=== PATIENT | female | born 1980 | race Caucasian/White ===

== ENCOUNTER 2020-04-19 08:30 | Emergency (ER) | payer SELFPAY ==
--- NOTE | 2020-04-19 10:14 | ER ---
Nurse's Notes [facility] Name: Tess Villatoro Age: 40 yrs Sex: Female : 1980 Arrival Date: 04/19/2020 Time: 08:33 Bed 8 Private MD: Diagnosis: Cellulitis of otaf-yivl-oetskts Presentation: 04/19 09:45 Chief complaint: Right upper eyelid swelling and redness x 2 days. Coronavirus screen: hb At this time, the client does not indicate any symptoms associated with coronavirus-19. Ebola Screen: No symptoms or risks identified at this time. Initial Sepsis Screen: Does the patient meet any 2 criteria? No. Patient's initial sepsis screen is negative. Does the patient have a suspected source of infection? No. Patient's initial sepsis screen is negative. Risk Assessment: Do you want to hurt yourself or someone else? Patient reports no desire to harm self or others. Onset of symptoms was April 17, 2020. 09:45 Method Of Arrival: Ambulatory hb 09:45 Acuity: ALEXANDER 4 hb Triage Assessment: 09:45 General: Appears in no apparent distress. Behavior is calm, cooperative. Pain: Pain hb currently is 3 out of 10 on a pain scale. EENT: Reports redness and swelling noted to right upper eye lid, pt reports pain 3/10. Neuro: Level of Consciousness is awake, alert, obeys commands, Oriented to person, place, time, situation. Cardiovascular: Capillary refill < 3 seconds Patient's skin is warm and dry. Respiratory: Respiratory effort is even, unlabored, Respiratory pattern is regular, symmetrical. GI: No signs and/or symptoms were reported involving the gastrointestinal system. : Derm: Skin is pink, warm \T\ dry. Musculoskeletal: No signs and/or symptoms reported regarding the musculoskeletal system. 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 - Social history:: Smoking status: Patient denies any tobacco usage or history of. - Family history:: not pertinent. Screenin:48 Abuse screen: Denies threats or abuse. Denies injuries from another. Nutritional hb screening: No deficits noted. Tuberculosis screening: No symptoms or risk factors identified. Fall Risk None identified. Assessment: 09:48 General: see triage assessment . hb Vital Signs: 09:45 BP 122 / 74; Pulse 74; Resp 16; Temp 98.2; Pulse Ox 99% ; Weight 74.84 kg; Height 5 ft. hb 2 in. (157.48 cm); Pain 3/10; 09:45 Body Mass Index 30.18 (74.84 kg, 157.48 cm) hb ED Course: 08:33 Patient arrived in ED. mr 09:38 Lanny Terrell MD is Attending Physician. ma2 09:43 Arm band placed on. hb 09:46 Triage completed. hb 09:48 Patient has correct armband on for positive identification. Bed in low position. Call hb light in reach. Side rails up X 1. 10:11 Kimberley West, LILIANA is Primary Nurse. hb 10:13 Maksim Melgoza MD is Referral Physician. ma2 10:30 No provider procedures requiring assistance completed. Patient did not have IV access hb during this emergency room visit. Administered Medications: 10:30 Drug: Augmentin 875 mg Route: PO; hb 10:38 Follow up: Response: Medication administered at discharge. hb Outcome: 10:14 Discharge ordered by . ma2 10:30 Discharged to home ambulatory. hb 10:30 Condition: stable 10:30 Discharge instructions given to patient, Instructed on discharge instructions, follow up and referral plans. medication usage, Demonstrated understanding of instructions, follow-up care, medications, Prescriptions given X 1. 10:31 Patient left the ED. hb Signatures: Jerrica Haynes mr Kimberley West, RN RN Lanny Terrell MD MD ma2
--- NOTE | 2020-04-19 10:14 | EDPHYS ---
Physician Documentation [facility] Name: Tess Villatoro Age: 40 yrs Sex: Female : 1980 Arrival Date: 04/19/2020 Time: 08:33 Bed 8 Private MD: ED Physician Lanny Terrell HPI: 04/19 10:10 This 40 yrs old Female presents to ER via Ambulatory with complaints of Eye ma2 Swelling, Vision Problem. 10:10 This 40 yrs old Female presents to ER via Ambulatory with complaints of Eye ma2 Swelling, Vision Problem. 10:10 This 40 yrs old Female presents to ER via Ambulatory with complaints of ma2 Eyelid redness and Swelling. 10:10 Onset: The symptoms/episode began/occurred gradually, 3 day(s) ago. Associated signs ma2 and symptoms: Pertinent negatives: dizziness, fever, headache. Severity of symptoms: At their worst the symptoms were moderate in the emergency department the symptoms are unchanged. The patient has not experienced similar symptoms in the past. 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 - Social history:: Smoking status: Patient denies any tobacco usage or history of. - Family history:: not pertinent. ROS: 10:10 Constitutional: Negative for fever, chills, and weight loss. ma2 10:10 All other systems are negative. Exam: 10:10 Visual Acuity: Visual acuity is within normal limits. ma2 10:10 Constitutional: This is a well developed, well nourished patient who is awake, alert, and in no acute distress. Head/Face: Normocephalic, atraumatic. Eyes: Pupils equal round and reactive to light, extra-ocular motions intact. right upper eyelid is red and mildly swollen, the left eyelis is wnl and lashes normal. Conjunctiva and sclera are non-icteric and not injected. Cornea within normal limits. Periorbital areas with no swelling, redness, or edema. ENT: Nares patent. No nasal discharge, no septal abnormalities noted. Tympanic membranes are normal and external auditory canals are clear. Oropharynx with no redness, swelling, or masses, exudates, or evidence of obstruction, uvula midline. Mucous membranes moist. Neck: Trachea midline, no thyromegaly or masses palpated, and no cervical lymphadenopathy. Supple, full range of motion without nuchal rigidity, or vertebral point tenderness. No Meningismus. Chest/axilla: Normal chest wall appearance and motion. Nontender with no deformity. No lesions are appreciated. Cardiovascular: Regular rate and rhythm with a normal S1 and S2. No gallops, murmurs, or rubs. Normal PMI, no JVD. No pulse deficits. Vital Signs: 09:45 BP 122 / 74; Pulse 74; Resp 16; Temp 98.2; Pulse Ox 99% ; Weight 74.84 kg; Height 5 ft. hb 2 in. (157.48 cm); Pain 3/10; 09:45 Body Mass Index 30.18 (74.84 kg, 157.48 cm) hb MDM: 09:38 Patient medically screened. ma2 10:10 Differential diagnosis: Corneal abrasion of Corneal ulcer of Acute iritis of Data ma2 reviewed: vital signs, nurses notes. Counseling: I had a detailed discussion with the patient and/or guardian regarding: the historical points, exam findings, and any diagnostic results supporting the discharge/admit diagnosis, the presence of at least one elevated blood pressure reading (>120/80) during this emergency department visit, the need for outpatient follow up. Response to treatment: the patient's symptoms have markedly improved after treatment. Administered Medications: 10:30 Drug: Augmentin 875 mg Route: PO; hb 10:38 Follow up: Response: Medication administered at discharge. Disposition: 04/19/20 10:14 Discharged to Home. Impression: Cellulitis of face - lorraine-orbital. - Condition is Stable. - Discharge Instructions: Cellulitis, Adult. - Prescriptions for Augmentin 875- 125 mg Oral Tablet - take 1 tablet by ORAL route every 12 hours for 10 days; 20 tablet. - Medication Reconciliation Form, Thank You Letter, Antibiotic Education, Prescription Opioid Use form. - Follow up: Maksim Melgoza MD; When: Tomorrow; Reason: Continuance of care. Signatures: Kimberley West RN RN Lanny Terrell MD MD ma2 Corrections: (The following items were deleted from the chart) 10:31 10:14 04/19/2020 10:14 Discharged to Home. Impression: Cellulitis of face - hb lorraine-orbital. Condition is Stable. Forms are Medication Reconciliation Form, Thank You Letter, Antibiotic Education, Prescription Opioid Use. Follow up: Maksim Melgoza; When: Tomorrow; Reason: Continuance of care. ma2
[2020-04-19] MEDS ORDERED: AMOX/K CLAV 875 MG TAB ONE (10:37)
[2020-04-19 10:47] VITALS: BP 122/74; TEMP 98.2; O2SAT 99
== END 2020-04-19 10:31 | disposition home or self-care (01) ==
LOC: ER 08:30
DX: L03.213 Periorbital cellulitis (principal)
CPT/HCPCS: 99283

== ENCOUNTER 2021-01-12 21:03 | Emergency (ER) | payer OTHER ==
[2021-01-12 22:00] LABS: Absolute Lymphocytes (CBC) 3.5 K/uL (0.7-4.9); Basophils % 1.1 % (0-1.3); Lymphocytes % 28.1 % (15.3-44.8); MPV 9.1 fL (7.6-11.3)
--- NOTE | 2021-01-12 22:15 | RAD REPORT ---
EXAM DESCRIPTION: Carlos Single View01/12/2021 9:55 pm CLINICAL HISTORY: sob COMPARISON: January 08, 2021 FINDINGS: The lungs appear clear of acute infiltrate. The heart is normal size IMPRESSION: No acute abnormalities displayed
[2021-01-12 22:20] LABS: ALT/SGPT 33 U/L (12-78); AST/SGOT 10 U/L (15-37); Alkaline Phosphatase 86 U/L (45-117); BUN Blood Urea Nitrogen 21 mg/dL (7-18); Bicarbonate 27 mmol/L (21-32); Bilirubin Direct < 0.1 mg/dL (0-0.2); Bilirubin Total 0.2 mg/dL (0.2-1.0); Glucose Level 122 mg/dL (74-106); Magnesium 2.1 mg/dL (1.8-2.4); NT PRO-BNP 48 pg/mL (<125); Potassium 3.3 mmol/L (3.5-5.1); Protein, Total 6.8 g/dL (6.4-8.2); Sodium Level 144 mmol/L (136-145); Troponin (Emerg Dept Use Only) < 0.02 ng/mL (0.0-0.045)
[2021-01-12 22:27] LABS: Protime INR 0.94
[2021-01-12 23:37] LABS: SARS-COV-2 RT PCR NEGATIVE (NEGATIVE)
[2021-01-13] MEDS ORDERED: dexAMETHasone 10 MG/ML VIAL ONE (00:48)
[2021-01-13] MEDS ORDERED: LEVALBUTEROL 1.25 MG/3 ML NEB ONE (00:49)
--- NOTE | 2021-01-13 12:13 | ER ---
Nurse's Notes [facility] Name: Tess Villatoro Age: 40 yrs Sex: Female : 1980 Arrival Date: 01/12/2021 Time: 21:08 Bed 23 Private MD: Diagnosis: Acute bronchitis, unspecified Presentation: 01/12 21:08 Chief complaint: Patient states: Chest tightness and SOB since Tuesday, recently dx with sj1 strep. Coronavirus screen: Vaccine status: Patient reports receiving the 2nd dose of the covid vaccine. Ebola Screen: No symptoms or risks identified at this time. Initial Sepsis Screen: Does the patient meet any 2 criteria? No. Patient's initial sepsis screen is negative. Does the patient have a suspected source of infection? No. Patient's initial sepsis screen is negative. Risk Assessment: Do you want to hurt yourself or someone else? Patient reports no desire to harm self or others. Onset of symptoms was January 09, 2021. 21:08 Method Of Arrival: Ambulatory [facility] 21:08 Acuity: ALEXANDER 3 sj1 Triage Assessment: 21:11 General: Appears in no apparent distress. Behavior is calm, cooperative, appropriate sj1 for age. Pain: Complains of pain in chest Pain does not radiate. Pain currently is 7 out of 10 on a pain scale. at worst was 10 out of 10 on a pain scale. level that patient reports is acceptable is 0 out of 10 on a pain scale. Quality of pain is described as tightness Pain began 2-3 days ago. Is continuous. EENT: No signs and/or symptoms were reported regarding the EENT system. Neuro: Level of Consciousness is awake, alert, obeys commands, Oriented to person, place, time, situation. Cardiovascular: Reports chest pain, shortness of breath. Respiratory: Reports shortness of breath at rest on exertion cough that is productive, Airway is patent Trachea midline Respiratory effort is even, unlabored, Respiratory pattern is regular, symmetrical, Sputum is yellow. GI: No signs and/or symptoms were reported involving the gastrointestinal system. : No signs and/or symptoms were reported regarding the genitourinary system. Derm: No signs and/or symptoms reported regarding the dermatologic system. Musculoskeletal: No signs and/or symptoms reported regarding the musculoskeletal system. 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 - Social history:: Smoking status: Patient reports the use of cigarette tobacco products, smokes one pack cigarettes per day. Patient/guardian denies using alcohol, street drugs. Screenin:14 Abuse screen: Denies threats or abuse. Denies injuries from another. Nutritional sj1 screening: No deficits noted. Tuberculosis screening: No symptoms or risk factors identified. Fall Risk None identified. Assessment: 21:40 Pain: Complains of pain in mid-sternal area Pain does not radiate. Quality of pain is mr2 described as stabbing, stinging. Respiratory: Reports cough that is pain with cough pain with respiration. Vital Signs: 21:08 BP 131 / 70 RA Sitting (auto/lg); Pulse 99; Resp 20 S; Temp 97.9; Pulse Ox 96% on R/A; sj1 Weight 77.11 kg (R); Height 5 ft. 2 in. (157.48 cm); Pain 7/10; 21:40 BP 117 / 66; Pulse 85; Resp 17; Temp 98.2; Pulse Ox 100% ; Pain 6/10; dc2 21:08 Body Mass Index 31.09 (77.11 kg, 157.48 cm) 1 ED Course: 21:08 Patient arrived in ED. sj1 21:11 Triage completed. sj1 21:11 Arm band placed on. sj1 21:13 Patient maintains SpO2 saturation greater than 95% on room air. sj1 21:15 Phillip Sanabria PA is PHCP. [facility] 21:15 Duglas Kovacs MD is Attending Physician. [facility] 21:19 Fredi Hidalgo, LILIANA is Primary Nurse. mr2 21:38 Inserted saline lock: 20 gauge in right forearm, using aseptic technique. Blood dc2 collected. 21:44 Protime (+INR) Sent. dc2 21:44 Magnesium Sent. dc2 21:44 NT PRO-BNP Sent. dc2 21:44 Liver (Hepatic) Function Sent. dc2 21:44 CBC with Automated Diff Sent. dc2 21:44 Basic Metabolic Panel Sent. dc2 21:44 Basic Metabolic Panel Sent. dc2 21:45 CBC with Diff Sent. dc2 21:45 LFT's Sent. dc2 21:45 Magnesium Sent. dc2 21:45 NT PRO-BNP Sent. dc2 21:45 PT-INR Sent. dc2 21:45 Troponin (emerg Dept Use Only) Sent. dc2 21:45 COVID-19 (Coronavirus) Document "Date of Onset" if Symptomatic Sent. dc2 21:55 XRAY Chest (1 view) In Process Unspecified. EDMS 22:00 Patient has correct armband on for positive identification. Placed in gown. Bed in low mr2 position. Call light in reach. Side rails up X2. network intern on. Pulse ox on. NIBP on. 01/13 01:00 No provider procedures requiring assistance completed. IV discontinued. mr2 Administered Medications: 00:03 Drug: Decadron - Dexamethasone 10 mg Route: IVP; Site: left antecubital; mr2 00:03 Drug: Xopenex (levalbuterol) (3) 1.25 mg Route: Inhalation; mr2 Outcome: 01:54 Discharge ordered by . [facility] 02:21 Discharged to home ambulatory. mr2 02:21 Condition: stable 02:21 Discharge instructions given to patient, Instructed on medication usage, Prescriptions given X 2. 02:24 Patient left the ED. mr2 Signatures: Dispatcher [employer] EDOR Phillip Sanabria PA PA jmm Reynard, Mike, RN RN mr2 Bon, LILIANA Erazo RN, dc2 Rosa M Durant RN RN sj1 Corrections: (The following items were deleted from the chart) 01/12 21:15 21:08 Chief complaint: Patient states: Chest tightness and SOB since Tuesday, recently sj1 dx with strep. sj1
--- NOTE | 2021-01-13 12:13 | EDPHYS ---
Physician Documentation [facility] Name: Tess Villatoro Age: 40 yrs Sex: Female : 1980 Arrival Date: 01/12/2021 Time: 21:08 Bed 23 Private MD: ED Physician Duglas Kovacs HPI: 01/12 21:16 This 40 yrs old Female presents to ER via Ambulatory with complaints of Chest jmm Pain > 30 y/o. 21:16 The patient or guardian reports cough. Onset: The symptoms/episode began/occurred jmm gradually, 3 day(s) ago. Modifying factors: The symptoms are alleviated by nothing. the symptoms are aggravated by nothing. Associated signs and symptoms: Pertinent positives: sore throat. This is a 40-year-old female with no chronic medical conditions that presents to the emergency department with complaints of chest tightness, cough, shortness of breath beginning this past Tuesday. Patient recently finished a course of prednisone and azithromycin with no relief of symptoms.. 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 - Social history:: Smoking status: Patient reports the use of cigarette tobacco products, smokes one pack cigarettes per day. Patient/guardian denies using alcohol, street drugs. ROS: 21:16 Constitutional: Positive for body aches, chills. jmm 21:16 Cardiovascular: Positive for chest pain. 21:16 Respiratory: Positive for cough. 21:16 All other systems are negative. Exam: 21:16 Constitutional: This is a well developed, well nourished patient who is awake, alert, jmm and in no acute distress. Head/Face: atraumatic. Eyes: EOMI, no conjunctival erythema appreciated ENT: Moist Mucus Membranes Neck: Trachea midline, Supple Chest/axilla: Normal chest wall appearance and motion. Cardiovascular: Regular rate and rhythm. No edema appreciated Respiratory: Normal respirations, no respiratory distress appreciated Abdomen/GI: Non distended, soft Back: Normal ROM Skin: General appearance color normal MS/ Extremity: Moves all extremities, no obvious deformities appreciated, no edema noted to the lower extremities Neuro: Awake and alert, normal gait Psych: Behavior is normal, Mood is normal, Patient is cooperative and pleasant Vital Signs: 21:08 BP 131 / 70 RA Sitting (auto/lg); Pulse 99; Resp 20 S; Temp 97.9; Pulse Ox 96% on R/A; sj1 Weight 77.11 kg (R); Height 5 ft. 2 in. (157.48 cm); Pain 7/10; 21:40 BP 117 / 66; Pulse 85; Resp 17; Temp 98.2; Pulse Ox 100% ; Pain 6/10; dc2 21:08 Body Mass Index 31.09 (77.11 kg, 157.48 cm) 1 MDM: 21:16 Patient medically screened. [facility] 01/13 01:48 Data reviewed: vital signs, nurses notes. Counseling: I had a detailed discussion with [facility] the patient and/or guardian regarding: the historical points, exam findings, and any diagnostic results supporting the discharge/admit diagnosis, lab results, radiology results, the need for outpatient follow up, to return to the emergency department if symptoms worsen or persist or if there are any questions or concerns that arise at home. 01/12 21:23 Order name: Basic Metabolic Panel [facility] 01/12 21:23 Order name: CBC with Diff [facility] 01/12 21:23 Order name: LFT's [facility] 01/12 21:23 Order name: Magnesium [facility] 01/12 21:23 Order name: NT PRO-BNP [facility] 01/12 21:23 Order name: PT-INR [facility] 01/12 21:23 Order name: Troponin (emerg Dept Use Only); Complete Time: 22:28 [facility] 01/12 21:23 Order name: Basic Metabolic Panel; Complete Time: 22:28 [facility] 01/12 21:23 Order name: CBC with Automated Diff; Complete Time: 22:28 [facility] 01/12 21:23 Order name: Liver (Hepatic) Function; Complete Time: 22:28 [facility] 01/12 21:23 Order name: Magnesium; Complete Time: 22:28 [facility] 01/12 21:23 Order name: NT PRO-BNP; Complete Time: 22:28 [facility] 01/12 21:23 Order name: Protime (+INR); Complete Time: 22:30 [facility] 01/12 21:23 Order name: XRAY Chest (1 view); Complete Time: 22:28 [facility] 01/12 21:23 Order name: EKG; Complete Time: 21:24 [facility] 01/12 21:23 Order name: Cardiac monitoring; Complete Time: 21:45 [facility] 01/12 21:23 Order name: EKG - Nurse/Tech; Complete Time: 22:44 [facility] 01/12 21:23 Order name: IV Saline Lock; Complete Time: 21:45 [facility] 01/12 21:23 Order name: Labs collected and sent; Complete Time: 21:45 [facility] 01/12 21:23 Order name: O2 Per Protocol; Complete Time: 21:45 [facility] 01/12 21:23 Order name: O2 Sat Monitoring; Complete Time: 21:45 [facility] Administered Medications: 00:03 Drug: Decadron - Dexamethasone 10 mg Route: IVP; Site: left antecubital; mr2 00:03 Drug: Xopenex (levalbuterol) (3) 1.25 mg Route: Inhalation; mr2 Disposition: 08:46 Co-signature as Attending Physician, Duglas Kovacs MD I agree with the assessment and evy plan of care. Disposition Summary: 01/13/21 01:54 Discharge Ordered Location: Home [facility] Condition: Stable [facility] Diagnosis - Acute bronchitis, unspecified [facility] Followup: [facility] - With: Private Physician - When: 2 - 3 days - Reason: Recheck today's complaints, Continuance of care, Re-evaluation by your physician Discharge Instructions: - Discharge Summary Sheet [facility] - Acute Bronchitis, Adult [facility] Forms: - Medication Reconciliation Form [facility] - Thank You Letter [facility] - Antibiotic Education [facility] - Prescription Opioid Use [facility] - Work release form la1 Prescriptions: - Bromfed DM 2-30-10 mg/5 mL Oral syrup - take 10 milliliter by ORAL route every 4 hours; 200 milliliter; Refills: 0, [facility] Product Selection Permitted - albuterol sulfate 90 mcg/actuation Inhalation HFA aerosol inhaler - inhale 2 puff by INHALATION route every 6 hours; 1 Pump; Refills: 0, Product [facility] Selection Permitted Signatures: Dispatcher [employer] EDMS Fermín, MD MD evy Ardon Joel, PA PA jmm Reynard, Mike, RN RN mr2 Rosa M Durant RN RN sj1
--- NOTE | 2021-01-13 12:14 | EKG ---
Test Date: 2021-01-12 Test Time: 21:17:18 Poacher Operator: RITA MEASUREMENT RESULTS: Intervals: Rate: 81 DE: 136 QRSD: 88 QT: 368 QTc: 427 [place]: P: 40 DE: 136 QRS: 60 T: 42 INTERPRETIVE STATEMENTS: Normal sinus rhythm Cannot rule out Anterior infarct, age undetermined Abnormal ECG No previous ECG available for comparison Electronically Signed On 01-13-21 12:12:49 CDT by Mukesh Patrick
[2021-01-13 13:24] VITALS: BP 117/66; TEMP 98.2; O2SAT 100
== END 2021-01-13 02:24 | disposition home or self-care (01) ==
LOC: ER 21:03
DX: J20.9 Acute bronchitis, unspecified (principal); F17.210 Nicotine dependence, cigarettes, uncomplicated
CPT/HCPCS: 93005; 85025; 80048; 36415; 83735; 85610; 80076; 84484; 83880; 0240U; 71045; 96374; 99285; J1100

== ENCOUNTER 2021-09-28 08:47 | Emergency (ER) | payer SELFPAY ==
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
[2021-09-28 10:01] VITALS: BP 128/57; TEMP 98.6; O2SAT 97
== END 2021-09-28 09:53 | disposition home or self-care (01) ==
LOC: ER 08:47
DX: R20.2 Paresthesia of skin (principal); F17.210 Nicotine dependence, cigarettes, uncomplicated
CPT/HCPCS: 99281